=== PATIENT | female | born 1945 | race Caucasian/White ===

== ENCOUNTER → 2017-12-31 17:59 | Outpatient (CLI) | payer MEDICARE ==
[2017-12-31 18:18] LABS: BASOPHILS 0.4 % (0-2); HEMATOCRIT 31.1 % (36.0-48.0); HEMOGLOBIN 9.5 g/dL (12-16); IMMATURE GRANULOCYTES 0.4 % (0-5); MCH 28.2 pg (26.0-34.0); MCHC 30.5 g/dL (31.0-37.0); MCV 92.3 fL (80.0-100.0); MEAN PLATELET VOLUME 10.2 fL (7.4-10.4); MONOCYTES 8.9 % (2-11); NEUTROPHILS 66.3 % (40-80); PLATELET COUNT 283 10x3/uL (130-400); RBC 3.37 10x6/uL (4.00-5.40); RDW 14.2 % (11.5-14.5)
[2017-12-31 18:29] LABS: C-REACTIVE PROTEIN 7.5 mg/dL (0.0-0.9); CALCIUM 10.5 mg/dL (8.5-10.1); CARBON DIOXIDE 26.7 mmol/L (21.0-32.0); CREATININE - SERUM 2.1 mg/dL (0.6-1.3); POTASSIUM - SERUM 3.7 mmol/L (3.5-5.1)
[2017-12-31 19:22] LABS: ERYTHROCYTE SEDIMENTATION RATE 5 mm/hr (0-30)
== END | disposition home or self-care (01) ==
LOC: D.LABREF 17:59
PROVIDERS: Neurological Surgery
DX: Z51.81 Encounter for therapeutic drug level monitoring (principal); Z79.2 Long term (current) use of antibiotics

== ENCOUNTER → 2018-01-05 12:56 | Outpatient (CLI) | payer MEDICARE ==
[2018-01-05 15:07] LABS: ERYTHROCYTE SEDIMENTATION RATE 70 mm/hr (0-30)
== END | disposition home or self-care (01) ==
LOC: D.LABREF 12:56
PROVIDERS: Neurological Surgery
DX: T81.40XA Infection following a procedure, unspecified, initial encounter (principal)

== ENCOUNTER → 2018-01-12 14:39 | Outpatient (CLI) | payer MEDICARE ==
[2018-01-12 16:36] LABS: ERYTHROCYTE SEDIMENTATION RATE 104 mm/hr (0-30)
== END | disposition home or self-care (01) ==
LOC: D.LABREF 14:39
PROVIDERS: Neurological Surgery
DX: Z51.81 Encounter for therapeutic drug level monitoring (principal); Z79.2 Long term (current) use of antibiotics

== ENCOUNTER → 2018-01-19 10:30 | Outpatient (CLI) | payer MEDICARE ==
[2018-01-19 11:49] LABS: ERYTHROCYTE SEDIMENTATION RATE 79 mm/hr (0-30)
== END | disposition home or self-care (01) ==
LOC: D.LABREF 10:30
PROVIDERS: Neurological Surgery
DX: T81.40XA Infection following a procedure, unspecified, initial encounter (principal)

== ENCOUNTER → 2018-01-26 21:24 | Outpatient (CLI) | payer MEDICARE ==
[2018-01-26 22:56] LABS: ERYTHROCYTE SEDIMENTATION RATE 40 mm/hr (0-30)
== END | disposition home or self-care (01) ==
LOC: D.LABREF 21:24
PROVIDERS: Neurological Surgery
DX: Z51.81 Encounter for therapeutic drug level monitoring (principal); Z79.2 Long term (current) use of antibiotics